=== PATIENT | female | born 1965 | race African-American/Black ===

== ENCOUNTER 2018-03-28 11:28 | Emergency (ER) | payer BC ==
[~2018-03-28] VITALS: Ht 172.7 cm; Wt 98.0 kg
[2018-03-28] MEDS ORDERED: METOCLOPRAMIDE HCL 10MG/2ML VIAL IV ONE (12:00)
[2018-03-28] MEDS ORDERED: KETOROLAC 30MG/ML VIAL IV ONE (12:00)
[2018-03-28] MEDS ORDERED: SODIUM CHLORIDE 0.9% 1,000 ML IV ONE (12:00)
[2018-03-28] MEDS ORDERED: CYCLOBENZAPRINE 10MG TABLET PO ONE (12:00)
[2018-03-28 12:21] VITALS: BP 148/90
== END 2018-03-28 14:01 | disposition home or self-care (01) ==
LOC: ER 11:28
DX: R51 Headache (principal); I10 Essential (primary) hypertension; Z90.710 Acquired absence of both cervix and uterus
CPT/HCPCS: 96374; 96375; 99284; J1885; J2765; J7030

== ENCOUNTER 2018-07-20 09:19 | Emergency (ER) | payer BC ==
[~2018-07-20] VITALS: Ht 172.7 cm; Wt 98.0 kg
[2018-07-20] MEDS ORDERED: AMLO10TA4 MT (09:53)
[2018-07-20] MEDS ORDERED: MECLIZINE 25MG TABLET PO ONE ×3 (11:45→20:15)
[2018-07-20 12:14] LABS: BASOPHILS % 0.6 % (0.0-2.0); EOSINOPHILS % 0.9 % (0.0-5.0); HEMATOCRIT. 38.9 % (36.0-48.0); HEMOGLOBIN. 13.2 g/dL (12.0-16.0); LYMPHOCYTES % 43.4 % (20.0-50.0); MEAN CORPUSCULAR VOLUME 91.1 fL (81.0-99.0); MEAN PLATELET VOLUME 7.9 fl (7.4-10.4); MONOCYTES % 5.3 % (2.0-8.0); NEUTROPHILS % 49.8 % (40.0-76.0); PLATELET 289 x1000/uL (130-400); RED BLOOD CELL COUNT 4.27 mill/uL (4.2-5.4); RED CELL DISTRIBUTION WIDTH 14.9 % (11.6-14.6)
[2018-07-20 12:24] LABS: CHLORIDE 104 mEq/L (98-107)
[2018-07-20] MEDS ORDERED: ONDANSETRON HCL 4MG/2ML INJ IV ONE (13:15)
[2018-07-20] MEDS ORDERED: SODIUM CHLORIDE 0.9% 1,000 ML IV ONE (13:15)
[2018-07-20 20:27] VITALS: BP 132/82
== END 2018-07-20 20:28 | disposition home or self-care (01) ==
LOC: ER 09:19
DX: R42 Dizziness and giddiness (principal); I10 Essential (primary) hypertension; Z90.710 Acquired absence of both cervix and uterus
CPT/HCPCS: 36415; 70450; 80048; 85025; 93005; 96361; 96374; 99285; J2405; J7030; J8597